=== PATIENT | female | born 1940 | race Caucasian/White ===

== ENCOUNTER 2021-10-11 08:01 | Day surgery (SDC) | payer MEDICARE, BC ==
[~2021-10-11] VITALS: Ht 162.6 cm; Wt 94.3 kg
[2021-10-11] VITALS (11 sets, daily range): BP systolic 88–134; BP diastolic 61–82
[2021-10-11] MEDS ORDERED: normal saline 1000ml 1,000 ML IV SCH (08:30)
[2021-10-11] MEDS ORDERED: fentaNYL/PF 50MCG/1 ML 2ML syringe IV ONE (08:30)
[2021-10-11] MEDS ORDERED: MIDAZolam 1mg/ml 10ml vial IV ONE (08:30)
[2021-10-11 09:09] LABS: EOSINOPHILS # (AUTO) 0.1 X10'3 (0-0.9); EOSINOPHILS % (AUTO) 2.5 % (0-6); HEMATOCRIT 39.4 % (35.0-45.0); HEMOGLOBIN 13.7 g/dl (12.0-16.0); LYMPHOCYTES # (AUTO) 1.1 X10'3 (1.1-4.8); LYMPHOCYTES % (AUTO) 23.7 % (21-51); MEAN CORPUSCULAR HEMOGLOBIN 29.9 PG (27.0-31.0); MEAN CORPUSCULAR HGB CONC 34.8 g/dL (33.0-36.5); MEAN CORPUSCULAR VOLUME 85.9 FL (78-98); MEAN PLATELET VOLUME 8.9 FL (7.4-10.4); MONOCYTES # (AUTO) 0.4 X10'3 (0-0.9); MONOCYTES % (AUTO) 7.3 % (2-12); NEUTROPHILS # (AUTO) 3.1 X10'3 (1.8-7.7); NEUTROPHILS % (AUTO) 65.5 % (42-75); PLATELET COUNT 161 X10'3 (140-440); RED BLOOD COUNT 4.59 X10'6 (4.20-5.60); RED CELL DISTRIBUTION WIDTH 12.5 % (11.5-14.5); WHITE BLOOD COUNT 4.8 X10'3 (4.5-11.0)
[2021-10-11 09:19] LABS: ALBUMIN 3.7 G/DL (3.4-5.0); ANION GAP 9 (8-16); BLOOD UREA NITROGEN 23 MG/DL (7-18); BUN/CREATININE RATIO 21.5 (6.6-38.0); CALCIUM 8.6 MG/DL (8.5-10.1); CHLORIDE 104 MMOL/L (99-107); CREATININE 1.07 MG/DL (0.40-0.90); GLUCOSE 97 MG/DL (70-104); MAGNESIUM 1.7 MG/DL (1.5-2.4); POTASSIUM 3.5 MMOL/L (3.5-5.1); SODIUM 142 MMOL/L (135-145); TOTAL CARBON DIOXIDE 29.5 MMOL/L (24-32); eGFR 49 ML/MIN
[2021-10-11] MEDS ORDERED: METO-384 PO (10:15)
[2021-10-11] MEDS ORDERED: PROP150T2 PO (10:15)
[2021-10-11] MEDS ORDERED: TRIA1TAB3 PO (10:15)
[2021-10-11] MEDS ORDERED: MONT-40 PO (10:15)
[2021-10-11] MEDS ORDERED: ESTR0.5T29 PO (10:15)
[2021-10-11] MEDS ORDERED: BUDE10.26 (10:15)
[2021-10-11] MEDS ORDERED: APIX5TAB3 PO (10:15)
[2021-10-11] MEDS ORDERED: CELE-193 PO (10:20)
[2021-10-11] MEDS ORDERED: NITR0.4T48 SL (10:20)
[2021-10-11] MEDS ORDERED: ALBU8.5H17 IH (10:20)
[2021-10-11] MEDS ORDERED: ALBUTEROL (10:20)
[2021-10-11] MEDS ORDERED: MULT-1085 PO (10:20)
[2021-10-11] MEDS ORDERED: FLU VACC QS2021-22(6MOS UP)/PF 60 MCG/0.5 ML SYRINGE IM ONE (12:08)
== END 2021-10-11 12:30 | disposition home or self-care (01) ==
LOC: SSTAY O 08:01
PROVIDERS: ATTEND Internal Medicine Cardiovascular Disease
DX: I48.19 Other persistent atrial fibrillation (principal); I45.2 Bifascicular block; J44.9 Chronic obstructive pulmonary disease, unspecified; I10 Essential (primary) hypertension; G47.30 Sleep apnea, unspecified; E78.5 Hyperlipidemia, unspecified; K21.9 Gastro-esophageal reflux disease without esophagitis; E66.9 Obesity, unspecified; Z68.35 Body mass index [BMI] 35.0-35.9, adult; Z87.891 Personal history of nicotine dependence; Z79.01 Long term (current) use of anticoagulants; Z79.899 Other long term (current) drug therapy; Z90.49 Acquired absence of other specified parts of digestive tract; Z98.890 Other specified postprocedural states; Z87.01 Personal history of pneumonia (recurrent); Z88.1 Allergy status to other antibiotic agents; Z88.0 Allergy status to penicillin; Z88.5 Allergy status to narcotic agent; Z91.09 Other allergy status, other than to drugs and biological substances; Z88.8 Allergy status to other drugs, medicaments and biological substances
CPT/HCPCS: 36415; 80048; 83735; 85025; 85610; 92960; 93005; 94760; 94799; J2250; J3010; J7030

== ENCOUNTER 2023-12-11 10:58 | Day surgery (SDC) | payer MEDICARE, BC ==
[~2023-12-11] VITALS: Ht 160 cm; Wt 92.8 kg
[2023-12-11] VITALS (10 sets, daily range): BP systolic 136–163; BP diastolic 78–100; PULSE 60–73; RESP 11–15; TEMP 97.8; O2SAT 94–98
[~2023-12-11 10:58] MED LIST: ALBU8.5H17 IH; ALBUTEROL; APIX5TAB3 PO; BUDE10.26; CELE-193 PO; ESTR0.5T29 PO; METO-384 PO; MONT-40 PO; MULT-1085 PO; NITR0.4T48 SL; PROP150T2 PO; TRIA1TAB3 PO
[2023-12-11] MEDS ORDERED: fentaNYL/PF 50MCG/1 ML 2ML syringe IV ONE (11:25)
[2023-12-11] MEDS ORDERED: MIDAZolam 1mg/ml 10ml vial IV ONE (11:25)
[2023-12-11] MEDS ORDERED: normal saline 1000ml 1,000 ML IV SCH (11:25)
[2023-12-11 12:35] LABS: BASOPHILS % (AUTO) 0.4 % (0-1); EOSINOPHILS # (AUTO) 0.1 X10'3 (0-0.9); EOSINOPHILS % (AUTO) 1.7 % (0-6); HEMATOCRIT 39.8 % (35.0-45.0); HEMOGLOBIN 13.7 g/dl (12.0-16.0); LYMPHOCYTES # (AUTO) 1.3 X10'3 (1.1-4.8); LYMPHOCYTES % (AUTO) 22.5 % (21-51); MEAN CORPUSCULAR HEMOGLOBIN 30.1 PG (27.0-31.0); MEAN CORPUSCULAR HGB CONC 34.4 g/dL (33.0-36.5); MEAN CORPUSCULAR VOLUME 87.7 FL (78-98); MONOCYTES # (AUTO) 0.4 X10'3 (0-0.9); MONOCYTES % (AUTO) 6.8 % (2-12); NEUTROPHILS # (AUTO) 3.9 X10'3 (1.8-7.7); NEUTROPHILS % (AUTO) 68.6 % (42-75); PLATELET COUNT 150 X10'3 (140-440); RED BLOOD COUNT 4.54 X10'6 (4.20-5.60); RED CELL DISTRIBUTION WIDTH 12.8 % (11.5-14.5); WHITE BLOOD COUNT 5.7 X10'3 (4.5-11.0)
[2023-12-11] MEDS ORDERED: FURO40TA4 PO (12:42)
[2023-12-11] MEDS ORDERED: ESTR1TAB28 PO (12:42)
[2023-12-11] MEDS ORDERED: AMI200T PO (12:42)
[2023-12-11] MEDS ORDERED: POTA-207 PO (12:42)
[2023-12-11 12:47] LABS: PROTHROMBIN TIME 11.2 SECONDS (9.0-12.0)
[2023-12-11 12:53] LABS: ALBUMIN 3.8 G/DL (3.4-5.0); ANION GAP 9 (8-16); BLOOD UREA NITROGEN 27 MG/DL (7-18); BUN/CREATININE RATIO 27.3 (10.0-20.0); CALCIUM 9.3 MG/DL (8.5-10.1); CHLORIDE 104 MMOL/L (99-107); CREATININE 0.99 MG/DL (0.40-0.90); GLUCOSE 83 MG/DL (70-104); MAGNESIUM 1.9 MG/DL (1.5-2.4); SODIUM 142 MMOL/L (135-145); TOTAL CARBON DIOXIDE 28.9 MMOL/L (24-32); eCRCL 36 ML/MIN; eGFR 54 ML/MIN
== END 2023-12-11 14:25 | disposition home or self-care (01) ==
LOC: SSTAY O 10:58
PROVIDERS: ATTEND Internal Medicine Cardiovascular Disease
DX: I48.0 Paroxysmal atrial fibrillation (principal); I45.2 Bifascicular block; I10 Essential (primary) hypertension; J45.909 Unspecified asthma, uncomplicated; G47.30 Sleep apnea, unspecified; E78.5 Hyperlipidemia, unspecified; K21.9 Gastro-esophageal reflux disease without esophagitis; E66.9 Obesity, unspecified; Z68.34 Body mass index [BMI] 34.0-34.9, adult; Z79.01 Long term (current) use of anticoagulants; Z79.899 Other long term (current) drug therapy; Z87.01 Personal history of pneumonia (recurrent); Z90.49 Acquired absence of other specified parts of digestive tract; Z98.890 Other specified postprocedural states; Z87.891 Personal history of nicotine dependence; Z88.1 Allergy status to other antibiotic agents; Z88.0 Allergy status to penicillin; Z88.5 Allergy status to narcotic agent; Z88.8 Allergy status to other drugs, medicaments and biological substances; Z91.040 Latex allergy status; Z82.3 Family history of stroke; Z82.49 Family history of ischemic heart disease and other diseases of the circulatory system
CPT/HCPCS: 36415; 80048; 83735; 85025; 85610; 92960; 93005; J2250; J3010; J7030; A4620

== ENCOUNTER 2023-12-29 08:29 | Day surgery (SDC) | payer MEDICARE, BC ==
[2023-12-29] VITALS (14 sets, daily range): BP systolic 127–155; BP diastolic 68–107; PULSE 57–72; RESP 13–20; TEMP 97.8; O2SAT 92–100
[~2023-12-29] VITALS: Ht 160 cm; Wt 92.8 kg
[~2023-12-29 08:29] MED LIST changes: +AMI200T PO; +ESTR1TAB28 PO; +FURO40TA4 PO; +POTA-207 PO; -PROP150T2 PO; -TRIA1TAB3 PO
[2023-12-29 09:30] LABS: BASOPHILS # (AUTO) 0.1 X10'3 (0-0.2); BASOPHILS % (AUTO) 1.2 % (0-1); EOSINOPHILS # (AUTO) 0.1 X10'3 (0-0.9); EOSINOPHILS % (AUTO) 2.6 % (0-6); HEMATOCRIT 38.2 % (35.0-45.0); HEMOGLOBIN 13.1 g/dl (12.0-16.0); LYMPHOCYTES % (AUTO) 21.9 % (21-51); MEAN CORPUSCULAR HEMOGLOBIN 30.2 PG (27.0-31.0); MEAN CORPUSCULAR HGB CONC 34.4 g/dL (33.0-36.5); MEAN CORPUSCULAR VOLUME 87.7 FL (78-98); MONOCYTES # (AUTO) 0.3 X10'3 (0-0.9); MONOCYTES % (AUTO) 7.5 % (2-12); NEUTROPHILS # (AUTO) 2.9 X10'3 (1.8-7.7); NEUTROPHILS % (AUTO) 66.8 % (42-75); PLATELET COUNT 146 X10'3 (140-440); RED BLOOD COUNT 4.35 X10'6 (4.20-5.60); RED CELL DISTRIBUTION WIDTH 12.6 % (11.5-14.5); WHITE BLOOD COUNT 4.4 X10'3 (4.5-11.0)
[2023-12-29] MEDS: normal saline 1000ml 1,000 ML IV SCH (09:35)
[2023-12-29 10:01] LABS: ALBUMIN 3.6 G/DL (3.4-5.0); ANION GAP 9 (8-16); BLOOD UREA NITROGEN 34 MG/DL (7-18); CALCIUM 8.8 MG/DL (8.5-10.1); CHLORIDE 107 MMOL/L (99-107); GLUCOSE 94 MG/DL (70-104); POTASSIUM 4.3 MMOL/L (3.5-5.1); SODIUM 146 MMOL/L (135-145); TOTAL CARBON DIOXIDE 30.4 MMOL/L (24-32); eCRCL 36 ML/MIN; eGFR 53 ML/MIN
[2023-12-29 10:37] LABS: INR 1.1 INR; PROTHROMBIN TIME 11.4 SECONDS (9.0-12.0)
[2023-12-29] MEDS: MIDAZolam 1mg/ml 10ml vial IV ONE (12:28)
[2023-12-29] MEDS: fentaNYL/PF 50MCG/1 ML 2ML syringe IV ONE (12:28)
== END 2023-12-29 12:30 | disposition home or self-care (01) ==
LOC: SSTAY O 08:29
PROVIDERS: ATTEND Internal Medicine Cardiovascular Disease
DX: I48.19 Other persistent atrial fibrillation (principal); I45.2 Bifascicular block; I10 Essential (primary) hypertension; G47.30 Sleep apnea, unspecified; E78.5 Hyperlipidemia, unspecified; J44.9 Chronic obstructive pulmonary disease, unspecified; K21.9 Gastro-esophageal reflux disease without esophagitis; E66.9 Obesity, unspecified; Z68.35 Body mass index [BMI] 35.0-35.9, adult; Z79.01 Long term (current) use of anticoagulants; Z79.899 Other long term (current) drug therapy; Z87.01 Personal history of pneumonia (recurrent); Z90.49 Acquired absence of other specified parts of digestive tract; Z98.890 Other specified postprocedural states; Z87.891 Personal history of nicotine dependence; Z88.1 Allergy status to other antibiotic agents; Z88.0 Allergy status to penicillin; Z88.5 Allergy status to narcotic agent; Z91.040 Latex allergy status; Z88.8 Allergy status to other drugs, medicaments and biological substances
CPT/HCPCS: 36415; 80048; 83735; 85025; 85610; 92960; 93005; J2250; J3010; J7030; A4620